=== PATIENT | male | born 1970 | race African-American/Black ===

== ENCOUNTER 2017-01-13 | Emergency (ER) | payer OTHER ==
--- NOTE | 2017-01-13 07:04 | ED ---
Alcohol HPI - General Chief Complaint: Alcohol Stated Complaint: ETOH Time Seen by Provider: 01/13/17 05:36 Source: EMS Mode of arrival: EMS Limitations: no limitations - History of Present Illness Initial Comments: Patient is a 46-year-old man who is in police custody. They are taking him to halfway but they state that his alcohol level was too high when they measured in the field. Patient does not have any medical complaints. MD Complaint: alcohol intoxication Last Drink: just PSYCHIATRIST Previous Visits for Alcohol Intoxication?: No Recent Trauma: No Associated Symptoms: denies other symptoms Treatments Prior to Arrival: none Chronic Alcohol Use: Yes - Related Data Allergies Allergy/AdvReac Type Severity Reaction Status Date / Time No Known Allergies Allergy Verified 01/13/17 05:27 Review of Systems ROS Statement: Those systems with pertinent positive or pertinent negative responses have been documented in the HPI. ROS Other: All systems not noted in ROS Statement are negative. Respiratory: Denies: cough, dyspnea Cardiovascular: Denies: chest pain Gastrointestinal: Denies: abdominal pain Neurological: Denies: headache Past Medical History Past Medical History: Asthma History of Any Multi-Drug Resistant Organisms: None Reported Additional Past Surgical History / Comment(s): Left arm surgery in jun 2016 Past Psychological History: No Psychological Hx Reported Smoking Status: Current every day smoker Past Alcohol Use History: Daily, Heavy Past Drug Use History: Marijuana General Exam Limitations: no limitations General appearance: alert, in no apparent distress, appears intoxicated Head exam: Present: atraumatic, normocephalic Eye exam: Present: normal appearance, PERRL, EOMI Respiratory exam: Present: normal lung sounds bilaterally. Absent: respiratory distress, wheezes, rales, rhonchi Cardiovascular Exam: Present: regular rate, normal rhythm, normal heart sounds GI/Abdominal exam: Present: soft. Absent: distended, tenderness, guarding, rebound Back exam: Present: normal inspection. Absent: vertebral tenderness Neurological exam: Present: alert Skin exam: Present: warm, dry, intact, normal color. Absent: rash Course Vital Signs 01/13/17 05:19 Temperature 97.7 F Pulse Rate 100 Respiratory 18 Rate Blood Pressure 147/94 O2 Sat by Pulse 98 Oximetry Disposition Clinical Impression: Alcoholic intoxication Disposition: HOME SELF-CARE Condition: Fair Instructions: Alcohol Intoxication (ED) Referrals: None,Stated [Primary Care Provider] - 1-2 days
--- NOTE | 2017-01-17 01:57 | CDI ---
Documentation Clarification OP Dear Alexi Emery Please do addendum to ED report for missing Clinical Impression. Thank you, Susie Jaime Delivery Table Operator If you have any questions, please contact [employer] at [phone] [facility]
== END 2017-01-13 07:20 | disposition home or self-care (01) ==
CPT/HCPCS: 82075; 99284